=== PATIENT | female | born 1940 | race Caucasian/White ===

== ENCOUNTER → 2016-12-24 | Outpatient (CLI) | payer OTHER ==
[~2016-12-24] MED LIST: FLEXERIL10 MG PO; VOLTAREN75 MG PO
--- NOTE | ~2016-12-24 | MY29 ---
[facility] A Service of [facility] & [facility] RADIOLOGY TEXT RESULTS PATIENT: HUBERT QUINTANA LOCATION: [facility] : 40 UNIT #: [id number] AGE: [address]: SARAHI AKINS MD SEX: F ORDER DR: [id number] [facility] [address] [place], [place] [address] [id number] O MR#: [id number] #: [id number] NAME: HUBERT QUINTANA : 1940 SEX: F STUDY DATE/TIME: 12/24/2016 11:37 UNIT: [facility] ROOM: STUDY DESCRIPTION: MY SHAHANA SCREENING W/ CAD BILAT Attending Physician: Sarahi Akins M.D. Referring Physician: Sarahi Akins M.D. Ordering Physician: Sarahi Akins M.D. Primary Care Physician: Jonathan Do M.D. MEDICAL IMAGING REPORT This report is preliminary unless electronic signature is present EXAM Bilateral digital screening mammogram with CAD COMPARISON STUDIES 12/23/2015, 12/06/2014, 11/26/2014, 10/19/2013, 09/26/2012, 10/03/2011, 09/25/2011, 09/22/2010, 09/19/2009, 09/15/2008, 08/25/2007, 08/19/2006. INDICATIONS Breast cancer screening. 76-year asymptomatic female. No personal or family history of breast cancer. FINDINGS There are scattered fibroglandular densities. There are benign arterial calcifications in both breasts. There are no suspicious findings in either breast. IMPRESSION No mammographic evidence of malignancy. Continued annual screening mammography and clinical breast exam are recommended. BIRADS: 2 Benign Finding. Patients over the age of 40 are entered into a reminder system with target due date for the next mammogram. A result letter will also be sent to the patient. Dictated by... Onur Richards M.D. THIS IS AN ELECTRONICALLY VERIFIED REPORT Onur Richards M.D. at 01/01/2017 2:26 AM BLM/pcl [facility] A Service of [facility] & [facility] RADIOLOGY TEXT RESULTS PATIENT: HUBERT QUINTANA LOCATION: [facility] : 40 UNIT #: [id number] AGE: [address]: SARAHI AKINS MD SEX: F ORDER DR: TD: 12/24/2016 23:12 JOB #: [id number] MEDICAL IMAGING REPORT Page 1 of 1 COPY
== END | disposition home or self-care (01) ==
LOC: CWCC 11:00
DX: Z12.31 Encounter for screening mammogram for malignant neoplasm of breast (principal)
CPT/HCPCS: G0202